=== PATIENT | male | born 1975 | race Caucasian/White ===

== ENCOUNTER 2023-03-14 07:15 | Day surgery (SDC) | payer OTHER ==
[~2023-03-14 07:15] MED LIST: Midazolam 1 MG/ML 2 ML SDV ONE; Propofol 200 MG/20 ML SDV ONE; Sodium Chloride 0.9% 1,000 ML IV SCH; fentaNYL 50 MCG/ML SDV ONE
== END 2023-03-14 09:40 | disposition home or self-care (01) ==
LOC: JP.SDS 07:15
PROVIDERS: ATTEND Surgery
DX: Z12.11 Encounter for screening for malignant neoplasm of colon (principal); Z91.013 Allergy to seafood
CPT/HCPCS: 45378; J2250; J2704; J3010; J7030